=== PATIENT | female | born 1970 | race Two or more races ===

== ENCOUNTER 2020-10-21 07:57 | Day surgery (SDC) | payer OTHER | END 2020-10-21 14:25 | disposition home or self-care (01) | LOC: AMB-ENDOS 07:57 | PROVIDERS: ATTEND Surgery | DX: D12.3 Benign neoplasm of transverse colon (principal); K51.818 Other ulcerative colitis with other complication; K52.89 Other specified noninfective gastroenteritis and colitis; Z20.822 Contact with and (suspected) exposure to COVID-19 ==

== ENCOUNTER 2022-01-06 12:45 | Inpatient (IN) | payer OTHER ==
[~2022-01-06] VITALS: Ht 152.4 cm; Wt 68.0 kg
--- NOTE | 2022-01-06 12:51 | NUR ---
PACIENTE ALERTA, CONCIENTE Y ORIENTADA REFIERE ESTOY OBSTRUIDA DEL INTESTINO.
--- NOTE | 2022-01-06 17:46 | NUR ---
SE REALIZA RADHA DE MUESTRA STIVEN ORDEN MEDICA BAJO TECNICAS ASEPTICAS. SE ORIENTA PTE SOBRE TX LO CUAL REFIERE ENTENDER. SE ADMINISTRA MEDICAMENTOS STIVEN ORDEN MEDICA. SE UTILIZA VENOPUNCION REALIZADO POR PARAMEDICOS, ANGIO #22, PATENTE Y AREA BRANDIN DE EDEMA Y ERITEMA. SE REMUEVE SEGUNDA VENOPUNCION REALIZADA POR PARAMEDICOS, ANGIO #24. SE MANTIENE EN OBSERVACION. PTE PENDIENTE A RESULTADOS DE LABORATORIO.
[2022-01-09] MEDS ORDERED: LEVOTHYROXINE50 MCG (11:12)
[2022-01-09] MEDS ORDERED: CLONAZEPAM0.5 MG (11:13)
[2022-01-10] MEDS ORDERED: PREDNISONE20 MG PO (08:43)
[2022-01-10] MEDS ORDERED: CIPRO500 MG PO (08:44)
[2022-01-10] MEDS ORDERED: METRONIDAZOLE500 MG PO (08:44)
[2022-01-10] MEDS ORDERED: INTESTINEX680 M1 PO (08:45)
== END 2022-01-10 11:38 | disposition home or self-care (01) | DRG 386 ==
LOC: ER 12:45 → MEDI 20:04
PROVIDERS: ADMIT Surgery; ATTEND Surgery
PROC: 02HV33Z Insertion of Infusion Device into Superior Vena Cava, Percutaneous Approach (ICD-10-PCS; principal; 2022-01-08)
DX: K50.912 Crohn's disease, unspecified, with intestinal obstruction (principal); K56.690 Other partial intestinal obstruction; E03.9 Hypothyroidism, unspecified; Z20.822 Contact with and (suspected) exposure to COVID-19

== ENCOUNTER 2022-05-21 15:02 | Emergency (ER) | payer OTHER ==
[~2022-05-21] VITALS: Ht 160 cm; Wt 72.6 kg
[~2022-05-21 15:02] MED LIST: CIPRO500 MG PO; CLONAZEPAM0.5 MG; INTESTINEX680 M1 PO; LEVOTHYROXINE50 MCG; METRONIDAZOLE500 MG PO; PREDNISONE20 MG PO
== END 2022-05-21 23:55 | disposition home or self-care (01) ==
LOC: ER 15:02
DX: R10.84 Generalized abdominal pain (principal); K50.90 Crohn's disease, unspecified, without complications

== ENCOUNTER 2022-07-13 23:51 | Inpatient (IN) | payer OTHER ==
[~2022-07-13] VITALS: Ht 154.9 cm; Wt 72.6 kg
[2022-07-14] MEDS ORDERED: ALDACTONE100 MG PO (00:04)
[2022-07-14] MEDS ORDERED: CABERGOLINE0.5 MG PO (00:05)
[2022-07-18] MEDS ORDERED: CLONAZEPAM0.5 MG (10:46)
[2022-07-24] MEDS ORDERED: INTESTINEX680 M1 PO (11:39)
[2022-07-24] MEDS ORDERED: TRAM1TAB98 PO (11:40)
[2022-07-24] MEDS ORDERED: PREDNISONE10 MG PO (11:44)
== END 2022-07-24 14:21 | disposition home or self-care (01) | DRG 331 ==
LOC: ER 23:51 → SEC-K 07-14 12:38 → SURH 07-14 12:38
PROVIDERS: ADMIT Surgery; ATTEND Surgery
PROC: 02HV33Z Insertion of Infusion Device into Superior Vena Cava, Percutaneous Approach (ICD-10-PCS; 2022-07-15)
PROC: 0DNW0ZZ Release Peritoneum, Open Approach (ICD-10-PCS; 2022-07-19)
PROC: 0DBU0ZZ Excision of Omentum, Open Approach (ICD-10-PCS; 2022-07-19)
PROC: 0DJD0ZZ Inspection of Lower Intestinal Tract, Open Approach (ICD-10-PCS; 2022-07-19)
PROC: 0DBK0ZZ Excision of Ascending Colon, Open Approach (ICD-10-PCS; 2022-07-19)
PROC: 0DQL0ZZ Repair Transverse Colon, Open Approach (ICD-10-PCS; 2022-07-19)
PROC: 0DBB0ZZ Excision of Ileum, Open Approach (ICD-10-PCS; principal; 2022-07-19 10:00)
DX: K50.012 Crohn's disease of small intestine with intestinal obstruction (principal); K52.89 Other specified noninfective gastroenteritis and colitis; R59.0 Localized enlarged lymph nodes; N73.6 Female pelvic peritoneal adhesions (postinfective); N99.4 Postprocedural pelvic peritoneal adhesions; E03.9 Hypothyroidism, unspecified; Z20.822 Contact with and (suspected) exposure to COVID-19

== ENCOUNTER 2023-04-14 19:47 | Emergency (ER) | payer OTHER ==
[~2023-04-14] VITALS: Ht 160 cm; Wt 74.8 kg
[~2023-04-14 19:47] MED LIST changes: +ALDACTONE100 MG PO; +CABERGOLINE0.5 MG PO; +PREDNISONE10 MG PO; +TRAM1TAB98 PO
[2023-04-14] MEDS ORDERED: ZESTRIL20 MG (20:31)
[2023-04-14] MEDS ORDERED: PAXIL40 MG (20:31)
[2023-04-14 23:15] LABS: HEMATOCRIT 34.6 % (36.0-45.00); HEMOGLOBIN 11.5 g/dL (12.0-15.00); MEAN CORPUSCULAR HEMOGLOBIN 28.2 pg (27.00-32.0); MEAN CORPUSCULAR HGB CONC 33.2 g/dl (32.0-36.0); PLATELET COUNT 286 K/uL (150-450); RED BLOOD COUNT 4.07 M/uL (4.00-6.00); RED CELL DISTRIBUTION WIDTH 14.1 % (11.5-14.5)
[2023-04-14 23:35] LABS: INR < 0.93; PARTIAL THROMBOPLASTIN TIME 26.8 SECONDS (22.0-34.0); PROTHROMBIN TIME 9.8 SECONDS (9.0-11.5)
[2023-04-14 23:40] LABS: BILIRUBIN TOTAL 0.33 mg/dL (0.3-1.2); CALCIUM 8.9 mg/dL (8.5-10.1); CREATININE SERUM 0.66 mg/dL (0.55-1.02); GFR 94.8; GLOBULINA 3.9 G/DL (2.4-3.5); POTASSIUM 4.12 mEq/L (3.5-5.1); TOTAL PROTEIN 6.9 gm/dL (6.4-8.2)
== END 2023-04-15 06:28 | disposition home or self-care (01) ==
LOC: ER 19:47
PROVIDERS: Emergency Medicine
DX: K30 Functional dyspepsia (principal); Z88.6 Allergy status to analgesic agent

== ENCOUNTER 2023-06-17 13:36 | Emergency (ER) | payer OTHER ==
[~2023-06-17] VITALS: Ht 160 cm; Wt 74.8 kg
[~2023-06-17 13:36] MED LIST changes: +PAXIL40 MG; +ZESTRIL20 MG
[2023-06-17 16:51] LABS: HEMATOCRIT 35.7 % (36.0-45.00); HEMOGLOBIN 11.9 g/dL (12.0-15.00); MEAN CELL VOLUME 86.2 fL (80.00-100.00); MEAN CORPUSCULAR HEMOGLOBIN 28.8 pg (27.00-32.0); MEAN CORPUSCULAR HGB CONC 33.4 g/dl (32.0-36.0); PLATELET COUNT 327 K/uL (150-450); RED BLOOD COUNT 4.14 M/uL (4.00-6.00); RED CELL DISTRIBUTION WIDTH 15.7 % (11.5-14.5)
[2023-06-17 17:09] LABS: PH,URINE 6.5 (5.0-8.0); URINE APPEARANCE Clear; URINE BILIRRUBIN Small (NEGATIVE); URINE BLOOD Negative; URINE COLOR Dark Yellow; URINE GLUCOSE Negative (NEGATIVE); URINE LEUKOCYTE Negative; URINE NITRATE Negative; URINE PROTEIN Trace (NEGATIVE); URINE UROBILINOGEN 0.2 E.U./dl
[2023-06-17 17:10] LABS: URINE BACTERIA 1800.4 uL (0.0-1933); URINE EPITHELIAL CELLS 32.1 uL (0.0-38.8); URINE RBC 24.4 uL (0.0-20.8); URINE WBC 13.9 uL (0.0-23.2)
[2023-06-17 17:23] LABS: INR < 0.93; PARTIAL THROMBOPLASTIN TIME 27.4 SECONDS (22.0-34.0); PROTHROMBIN TIME 9.8 SECONDS (9.0-11.5)
[2023-06-17 17:30] LABS: ALBUMIN 3.2 gm/dL (3.4-5.0); BILIRUBIN TOTAL 0.28 mg/dL (0.3-1.2); CALCIUM 9.4 mg/dL (8.5-10.1); CREATININE SERUM 0.73 mg/dL (0.55-1.02); GFR 84.39; GLOBULINA 4.4 G/DL (2.4-3.5); POTASSIUM 4.11 mEq/L (3.5-5.1); TOTAL PROTEIN 7.6 gm/dL (6.4-8.2)
== END 2023-06-17 19:37 | disposition home or self-care (01) ==
LOC: ER 13:37
PROVIDERS: General Practice
DX: T50.905A Adverse effect of unspecified drugs, medicaments and biological substances, initial encounter (principal); Y92.89 Other specified places as the place of occurrence of the external cause; E03.9 Hypothyroidism, unspecified; I10 Essential (primary) hypertension; Z88.6 Allergy status to analgesic agent; Z20.822 Contact with and (suspected) exposure to COVID-19